=== PATIENT | female | born 1980 | race African-American/Black ===

== ENCOUNTER 2023-04-09 12:50 | Emergency (ER) | payer MEDICAID, OTHER ==
[~2023-04-09] VITALS: Ht 160 cm; Wt 69.8 kg
[2023-04-09 14:40] VITALS: BP 135/63; PULSE 89; RESP 18; O2SAT 98
[2023-04-09] MEDS ORDERED: IBUP-1456 PO (14:40)
[2023-04-09] MEDS ORDERED: METH-1182 PO (14:40)
== END 2023-04-09 14:44 | disposition home or self-care (01) ==
LOC: ER 12:50
DX: S23.41XA Sprain of ribs, initial encounter (principal); Z79.1 Long term (current) use of non-steroidal anti-inflammatories (NSAID); Z79.899 Other long term (current) drug therapy; V43.52XA Car driver injured in collision with other type car in traffic accident, initial encounter; Y93.I9 Activity, other involving external motion; Y92.89 Other specified places as the place of occurrence of the external cause; Y99.8 Other external cause status
CPT/HCPCS: 71101